=== PATIENT | female | born 1970 | race Caucasian/White ===

== ENCOUNTER 2023-04-28 19:08 | Inpatient (IN) ==
[2023-04-28] MEDS ORDERED: Cefepime 2 GM in Dextrose 2 GM/50 ML BAG IV ONE (20:11)
[2023-04-28] MEDS ORDERED: Lactated Ringers 1000 ml BAG 1,000 ML IV ONE (20:58)
[2023-04-28 21:05] LABS: ABS Basophils 0.1 10^3/uL (0.0-0.1); ABS Lymphocytes 1.3 10^3/uL (1.0-4.8); ABS Neutrophils 8.7 10^3/uL (1.5-7.6); ABS Nucleated RBC 0.08 10^3/ul; Eosinophil % 0.3 %; Hematocrit 31.1 % (35-45); Hemoglobin 9.9 g/dL (11.5-14.3); Mean Corpuscular Hgb Conc 31.8 g/dL (31-36); Mean Platelet Volume 7.5 fL (7.5-11.2); Nucleated Red Blood Cells % 0.7 /100 WBC (0.0-0.4); Platelet Count 376 10^3/uL (150-450); Red Blood Count 3.66 10^6/uL (3.63-4.92); Red Cell Distribution Width 21.6 % (12-17); White Blood Count 11.2 10^3/uL (3.8-11.8)
[2023-04-28 21:12] LABS: Activated Partial Thrombo Time 27.2 seconds (26.0-38.0); INR 1.3 (0.88-1.18)
[2023-04-28 21:23] LABS: Albumin 3.1 g/dL (3.2-5.2); Albumin/Globulin Ratio 1.2 (1-3); C Reactive Protein 48.13 mg/L (<8.01); Calcium 8.1 mg/dL (8.6-10.3); Creatinine, Serum 0.49 mg/dL (0.51-0.95); Globulin 2.5 g/dL (2-4); Potassium 3.3 mmol/L (3.5-5.0); Total Bilirubin 1.5 mg/dL (0.2-1.0); Total Protein 5.6 g/dL (6.4-8.9); eGFR CKD-EPI 114.7 (>60)
[2023-04-28] MEDS ORDERED: Iohexol 350 (CONTRAST) 500 ML MDV IV ONE (21:40)
[2023-04-29] MEDS ORDERED: NS 0.9% 1000 ml BAG 1,000 ML IV ONE ×2 (01:01→06:29)
[2023-04-29] MEDS ORDERED: Potassium Chlor 20 meq TAB.ER PO ONE (01:21)
[2023-04-29] MEDS: ceFAZolin 2 GM PREMIX 2 GM/50 ML BAG IVPB SCH ×3 (01:26→21:24)
[2023-04-29] MEDS ORDERED: Thiamine 100 MG/ML 2 ml VIAL (200 mg) IM ONE (01:32)
[2023-04-29 01:41] LABS: Magnesium 1.1 mg/dL (1.9-2.7)
[2023-04-29] MEDS ORDERED: Magnesium Sulf 4 GM/100 ML IV 4,000 MG/100 ML BAG IVPB ONE (01:52)
[2023-04-29 02:06] LABS: High Sensitivity Troponin 1 Hr 36 pg/mL (<15)
[2023-04-29 02:48] LABS: Hepatitis A Ab IgM Negative (Negative)
[2023-04-29 02:49] LABS: Hepatitis B Core IgM Nonreactive (Nonreactive)
[2023-04-29 03:01] LABS: Hepatitis C Antibody Negative (Negative)
[2023-04-29] MEDS: Multivitamins/Minerals TAB PO SCH ×2 (03:16→09:29)
[2023-04-29] MEDS ORDERED: Iohexol 350 (CONTRAST) 500 ML MDV IV ONE (03:55)
[2023-04-29 04:09] LABS: Hepatitis B Surface Antigen Nonreactive (Nonreactive)
[2023-04-29 07:49] LABS: ABS Monocytes 1.1 10^3/uL (0.0-0.9); ABS Neutrophils 8.4 10^3/uL (1.5-7.6); ABS Nucleated RBC 0.03 10^3/ul; Hematocrit 28.2 % (35-45); Hemoglobin 9.3 g/dL (11.5-14.3); Lymphocyte % 9.7 %; Mean Corpuscular Hemoglobin 27.7 pg (27-33); Mean Corpuscular Hgb Conc 32.9 g/dL (31-36); Mean Corpuscular Volume 84.4 fL (80-97); Mean Platelet Volume 7.6 fL (7.5-11.2); Nucleated Red Blood Cells % 0.3 /100 WBC (0.0-0.4); Platelet Count 339 10^3/uL (150-450); Red Blood Count 3.34 10^6/uL (3.63-4.92); Red Cell Distribution Width 21.4 % (12-17); White Blood Count 10.5 10^3/uL (3.8-11.8)
[2023-04-29 08:06] LABS: Albumin 2.9 g/dL (3.2-5.2); Albumin/Globulin Ratio 1.3 (1-3); Calcium 7.5 mg/dL (8.6-10.3); Creatinine, Serum 0.46 mg/dL (0.51-0.95); Globulin 2.2 g/dL (2-4); Magnesium 2.2 mg/dL (1.9-2.7); Potassium 2.8 mmol/L (3.5-5.0); Total Bilirubin 1.8 mg/dL (0.2-1.0); Total Protein 5.1 g/dL (6.4-8.9); eGFR CKD-EPI 116.5 (>60)
[2023-04-29 08:10] LABS: Urine Appearance Cloudy; Urine Bilirubin Negative (Negative); Urine Blood Negative (Negative); Urine Color Amber; Urine Glucose Negative (Negative); Urine Ketones 1+ (Negative); Urine Nitrite Negative (Negative); Urine Protein Negative (Negative); Urine Specific Gravity 1.013 (1.002-1.030); Urine Urobilinogen Positive (Negative)
[2023-04-29 08:11] LABS: Alcohol, S < 13 mg/dL (<13)
[2023-04-29 08:28] LABS: TSH Ultra Thyroid Stim Horm 3.08 mcIU/mL (0.34-5.60)
[2023-04-29] MEDS: Venlafaxine XR 75 mg PO SCH (09:31)
[2023-04-29] MEDS: Nystatin TOP POWDER 15 GM BTL TOPICAL SCH ×3 (10:09→21:40)
[2023-04-29] MEDS: KCL 20 MEQ/100 ML IVPREMIX 20 MEQ/100 ML BAG IV SCH ×4 (14:01→23:07)
[2023-04-29] MEDS ORDERED: Sulfur Hexaflouride MICROSPHR 25 MG VIAL ONE (14:22)
[2023-04-29 17:03] LABS: Calcium 7.9 mg/dL (8.6-10.3); Creatinine, Serum 0.46 mg/dL (0.51-0.95); eGFR CKD-EPI 116.5 (>60)
[2023-04-30] MEDS: ceFAZolin 2 GM PREMIX 2 GM/50 ML BAG IVPB SCH ×3 (05:13→22:10)
[2023-04-30 05:55] LABS: Hematocrit 28.3 % (35-45); Hemoglobin 9.3 g/dL (11.5-14.3); Mean Corpuscular Hemoglobin 27.7 pg (27-33); Mean Corpuscular Hgb Conc 32.8 g/dL (31-36); Mean Corpuscular Volume 84.5 fL (80-97); Mean Platelet Volume 7.1 fL (7.5-11.2); Platelet Count 279 10^3/uL (150-450); Red Blood Count 3.35 10^6/uL (3.63-4.92); White Blood Count 6.3 10^3/uL (3.8-11.8)
[2023-04-30 06:11] LABS: Albumin 2.9 g/dL (3.2-5.2); Albumin/Globulin Ratio 1.3 (1-3); Calcium 7.8 mg/dL (8.6-10.3); Creatinine, Serum 0.45 mg/dL (0.51-0.95); Globulin 2.2 g/dL (2-4); Magnesium 1.8 mg/dL (1.9-2.7); Potassium 3.3 mmol/L (3.5-5.0); Total Bilirubin 1.1 mg/dL (0.2-1.0); Total Protein 5.1 g/dL (6.4-8.9); eGFR CKD-EPI 117.1 (>60)
[2023-04-30 06:41] LABS: ABS Lymphocytes 0.9 10^3/uL (1.0-4.8); ABS Monocytes 0.6 10^3/uL (0.0-0.9); ABS Neutrophils 4.6 10^3/uL (1.5-7.6); ABS Nucleated RBC 0.01 10^3/ul; Eosinophil % 0.6 %; Lymphocyte % 14.6 %; Nucleated Red Blood Cells % 0.2 /100 WBC (0.0-0.4)
[2023-04-30] MEDS: Multivitamins/Minerals TAB PO SCH (10:13)
[2023-04-30] MEDS: Venlafaxine XR 75 mg PO SCH (10:15)
[2023-04-30] MEDS: Nystatin TOP POWDER 15 GM BTL TOPICAL SCH ×3 (10:18→21:41)
[2023-04-30 10:58] LABS: Ferritin 114.3 ng/mL (11-307)
[2023-04-30] MEDS ORDERED: Magnesium Sulfate 2 gm BAG 2 GM/50 ML BAG IVPB ONE (11:20)
[2023-04-30] MEDS ORDERED: Potassium Chlor 20 meq TAB.ER PO ONE (11:21)
[2023-04-30] MEDS: KCL 20 MEQ/100 ML IVPREMIX 20 MEQ/100 ML BAG IV SCH ×2 (14:21→16:47)
[2023-05-01] MEDS: ceFAZolin 2 GM PREMIX 2 GM/50 ML BAG IVPB SCH ×3 (05:19→21:50)
[2023-05-01 06:20] LABS: ABS Eosinophils 0.2 10^3/uL (0.0-0.5); ABS Monocytes 0.5 10^3/uL (0.0-0.9); ABS Neutrophils 4.8 10^3/uL (1.5-7.6); ABS Nucleated RBC 0.02 10^3/ul; Eosinophil % 2.6 %; Hematocrit 29.1 % (35-45); Hemoglobin 9.4 g/dL (11.5-14.3); Lymphocyte % 15.4 %; Mean Corpuscular Hgb Conc 32.2 g/dL (31-36); Mean Corpuscular Volume 87.2 fL (80-97); Mean Platelet Volume 7.2 fL (7.5-11.2); Nucleated Red Blood Cells % 0.3 /100 WBC (0.0-0.4); Platelet Count 283 10^3/uL (150-450); Red Blood Count 3.34 10^6/uL (3.63-4.92); Red Cell Distribution Width 22.7 % (12-17); White Blood Count 6.6 10^3/uL (3.8-11.8)
[2023-05-01 06:34] LABS: Albumin/Globulin Ratio 1.3 (1-3); Calcium 7.7 mg/dL (8.6-10.3); Creatinine, Serum 0.45 mg/dL (0.51-0.95); Globulin 2.3 g/dL (2-4); Magnesium 1.8 mg/dL (1.9-2.7); Potassium 3.5 mmol/L (3.5-5.0); Total Bilirubin 0.9 mg/dL (0.2-1.0); Total Protein 5.3 g/dL (6.4-8.9); eGFR CKD-EPI 117.1 (>60)
[2023-05-01] MEDS ORDERED: Potassium Chlor 20 meq TAB.ER PO ONE (07:34)
[2023-05-01] MEDS: Multivitamins/Minerals TAB PO SCH (09:23)
[2023-05-01] MEDS: Venlafaxine XR 75 mg PO SCH (09:23)
[2023-05-01] MEDS: Nystatin TOP POWDER 15 GM BTL TOPICAL SCH ×3 (09:25→21:36)
[2023-05-02] MEDS: ceFAZolin 2 GM PREMIX 2 GM/50 ML BAG IVPB SCH ×3 (06:05→22:31)
[2023-05-02 08:18] LABS: Hemoglobin 9.8 g/dL (11.5-14.3); Mean Corpuscular Hemoglobin 27.9 pg (27-33); Mean Corpuscular Hgb Conc 31.6 g/dL (31-36); Mean Corpuscular Volume 88.2 fL (80-97); Mean Platelet Volume 7.4 fL (7.5-11.2); Platelet Count 292 10^3/uL (150-450); Red Blood Count 3.51 10^6/uL (3.63-4.92); Red Cell Distribution Width 22.7 % (12-17); White Blood Count 7.8 10^3/uL (3.8-11.8)
[2023-05-02 08:32] LABS: Blood Urea Nitrogen 3 mg/dL (6-24); C Reactive Protein 39.18 mg/L (<8.01); CO2 Carbon Dioxide 31 mmol/L (22-32); Calcium 8.2 mg/dL (8.6-10.3); Chloride 95 mmol/L (101-111); Creatinine, Serum 0.39 mg/dL (0.51-0.95); Glucose 119 mg/dL (70-100); Sodium 135 mmol/L (135-145); eGFR CKD-EPI 121.2 (>60)
[2023-05-02 08:42] LABS: Anion Gap 9 mmol/L (2-16)
[2023-05-02 10:04] LABS: ABS Eosinophils 0.2 10^3/uL (0.0-0.5); ABS Lymphocytes 1.4 10^3/uL (1.0-4.8); ABS Monocytes 0.7 10^3/uL (0.0-0.9); ABS Neutrophils 5.4 10^3/uL (1.5-7.6); ABS Nucleated RBC 0.09 10^3/ul; Lymphocyte % 18.3 %; Nucleated Red Blood Cells % 1.1 /100 WBC (0.0-0.4)
[2023-05-02] MEDS: Multivitamins/Minerals TAB PO SCH (10:30)
[2023-05-02] MEDS: Venlafaxine XR 75 mg PO SCH (10:31)
[2023-05-02] MEDS: Nystatin TOP POWDER 15 GM BTL TOPICAL SCH ×3 (10:33→20:36)
[2023-05-02 18:11] LABS: PCO2 Arterial 43 mmHg (35-45); PO2 Arterial 76 mmHg (80-100)
[2023-05-03 05:40] LABS: PCO2 Arterial 43 mmHg (35-45); PO2 Arterial 76 mmHg (80-100)
[2023-05-03 05:52] LABS: Hematocrit 28.2 % (35-45); Hemoglobin 9.1 g/dL (11.5-14.3); Mean Corpuscular Hemoglobin 28.1 pg (27-33); Mean Corpuscular Hgb Conc 32.3 g/dL (31-36); Mean Corpuscular Volume 87.1 fL (80-97); Platelet Count 308 10^3/uL (150-450); Red Blood Count 3.23 10^6/uL (3.63-4.92); Red Cell Distribution Width 23.1 % (12-17); White Blood Count 7.4 10^3/uL (3.8-11.8)
[2023-05-03] MEDS: ceFAZolin 2 GM PREMIX 2 GM/50 ML BAG IVPB SCH ×3 (05:54→21:50)
[2023-05-03 06:00] LABS: Calcium 8.3 mg/dL (8.6-10.3); Creatinine, Serum 0.45 mg/dL (0.51-0.95); Magnesium 1.8 mg/dL (1.9-2.7); Potassium 3.7 mmol/L (3.5-5.0); eGFR CKD-EPI 117.1 (>60)
[2023-05-03 06:14] LABS: ABS Eosinophils 0.3 10^3/uL (0.0-0.5); ABS Lymphocytes 1.3 10^3/uL (1.0-4.8); ABS Monocytes 0.8 10^3/uL (0.0-0.9); ABS Nucleated RBC 0.11 10^3/ul; Eosinophil % 3.6 %; Lymphocyte % 17.7 %; Nucleated Red Blood Cells % 1.5 /100 WBC (0.0-0.4)
[2023-05-03] MEDS: Venlafaxine XR 75 mg PO SCH (07:43)
[2023-05-03] MEDS: Multivitamins/Minerals TAB PO SCH (07:43)
[2023-05-03] MEDS: Nystatin TOP POWDER 15 GM BTL TOPICAL SCH ×3 (07:43→21:49)
[2023-05-03] MEDS ORDERED: Potassium Chlor 20 meq TAB.ER PO ONE (08:03)
[2023-05-04] MEDS: ceFAZolin 2 GM PREMIX 2 GM/50 ML BAG IVPB SCH ×3 (05:42→21:54)
[2023-05-04 08:17] LABS: Body Fluid Appearance Cloudy; Body Fluid Color Yellow; Body Fluid Source Synovial Fluid
[2023-05-04 08:47] LABS: Hematocrit 30.9 % (35-45); Mean Corpuscular Hemoglobin 28.3 pg (27-33); Mean Corpuscular Hgb Conc 32.3 g/dL (31-36); Mean Corpuscular Volume 87.4 fL (80-97); Mean Platelet Volume 7.7 fL (7.5-11.2); Platelet Count 394 10^3/uL (150-450); Red Blood Count 3.53 10^6/uL (3.63-4.92); Red Cell Distribution Width 23.4 % (12-17)
[2023-05-04 08:56] LABS: Body Fluid WBC 158 /mcL
[2023-05-04] MEDS: Nystatin TOP POWDER 15 GM BTL TOPICAL SCH ×3 (09:25→20:15)
[2023-05-04] MEDS: Multivitamins/Minerals TAB PO SCH (09:27)
[2023-05-04] MEDS: Venlafaxine XR 75 mg PO SCH (09:27)
[2023-05-04 10:09] LABS: ABS Basophils 0.1 10^3/uL (0.0-0.1); ABS Eosinophils 0.2 10^3/uL (0.0-0.5); ABS Lymphocytes 1.6 10^3/uL (1.0-4.8); ABS Monocytes 0.9 10^3/uL (0.0-0.9); ABS Neutrophils 6.2 10^3/uL (1.5-7.6); ABS Nucleated RBC 0.07 10^3/ul; Eosinophil % 2.6 %; Lymphocyte % 17.7 %; Nucleated Red Blood Cells % 0.8 /100 WBC (0.0-0.4)
[2023-05-04 10:49] LABS: Body Fluid Mono 51 %; Body Fluid Other Cells 17; Body Fluid Total Cells Counted 200
[2023-05-04] MEDS ORDERED: Furosemide 20 mg/2 ml IV VIAL IV SLOW PU ONE (13:11)
[2023-05-04] MEDS ORDERED: Furosemide 40 mg/4 ml IV VIAL IV SLOW PU ONE ×2 (19:34→21:00)
[2023-05-05] MEDS: ceFAZolin 2 GM PREMIX 2 GM/50 ML BAG IVPB SCH ×3 (05:02→22:24)
[2023-05-05 06:10] LABS: Hematocrit 29.4 % (35-45); Hemoglobin 9.3 g/dL (11.5-14.3); Mean Corpuscular Hemoglobin 27.8 pg (27-33); Mean Corpuscular Hgb Conc 31.8 g/dL (31-36); Mean Corpuscular Volume 87.4 fL (80-97); Mean Platelet Volume 7.7 fL (7.5-11.2); Platelet Count 315 10^3/uL (150-450); Red Blood Count 3.36 10^6/uL (3.63-4.92); Red Cell Distribution Width 22.8 % (12-17); White Blood Count 6.4 10^3/uL (3.8-11.8)
[2023-05-05 06:26] LABS: Albumin 3.1 g/dL (3.2-5.2); Albumin/Globulin Ratio 1.1 (1-3); Calcium 8.5 mg/dL (8.6-10.3); Creatinine, Serum 0.5 mg/dL (0.51-0.95); Globulin 2.7 g/dL (2-4); Potassium 3.7 mmol/L (3.5-5.0); Total Bilirubin 0.9 mg/dL (0.2-1.0); Total Protein 5.8 g/dL (6.4-8.9); eGFR CKD-EPI 114.2 (>60)
[2023-05-05 06:51] LABS: ABS Eosinophils 0.2 10^3/uL (0.0-0.5); ABS Lymphocytes 1.3 10^3/uL (1.0-4.8); ABS Monocytes 0.8 10^3/uL (0.0-0.9); ABS Neutrophils 4.1 10^3/uL (1.5-7.6); ABS Nucleated RBC 0.05 10^3/ul; Eosinophil % 3.2 %; Lymphocyte % 19.9 %; Nucleated Red Blood Cells % 0.9 /100 WBC (0.0-0.4)
[2023-05-05] MEDS: Multivitamins/Minerals TAB PO SCH (09:11)
[2023-05-05] MEDS: Nystatin TOP POWDER 15 GM BTL TOPICAL SCH ×3 (09:11→23:22)
[2023-05-05] MEDS: Venlafaxine XR 75 mg PO SCH (09:11)
[2023-05-05] MEDS ORDERED: Furosemide 40 mg/4 ml IV VIAL IV SLOW PU ONE (11:49)
[2023-05-05 12:13] LABS: Magnesium 1.7 mg/dL (1.9-2.7)
[2023-05-05] MEDS ORDERED: Magnesium Sulfate IV 3 GM in NS 0.9% 100 ml BAG 100 ML IVPB ONE (16:25)
[2023-05-05] MEDS ORDERED: Potassium Chlor 20 meq TAB.ER PO ONE (18:00)
[2023-05-06] MEDS: ceFAZolin 2 GM PREMIX 2 GM/50 ML BAG IVPB SCH ×3 (05:36→20:47)
[2023-05-06 09:08] LABS: Calcium 8.5 mg/dL (8.6-10.3); Creatinine, Serum 0.45 mg/dL (0.51-0.95); Potassium 4.2 mmol/L (3.5-5.0); eGFR CKD-EPI 117.1 (>60)
[2023-05-06] MEDS ORDERED: Lidocaine 1% MPF 5 ML VIAL INJ ONE (09:48)
[2023-05-06 10:02] LABS: Folate 13.08 ng/mL (5.90-24.80)
[2023-05-06] MEDS: Multivitamins/Minerals TAB PO SCH (10:27)
[2023-05-06] MEDS: Venlafaxine XR 75 mg PO SCH (10:28)
[2023-05-06] MEDS ORDERED: Magnesium Hydroxide LIQ 30 ML UDC PO PRN (11:20)
[2023-05-06] MEDS: Nystatin TOP POWDER 15 GM BTL TOPICAL SCH ×3 (12:05→20:54)
[2023-05-06] MEDS: Senna TAB 8.6 mg TAB PO PRN (14:03)
[2023-05-06] MEDS: Polyethylene Glycol 3350 17 GM PACKET PO PRN (14:03)
[2023-05-07] MEDS: ceFAZolin 2 GM PREMIX 2 GM/50 ML BAG IVPB SCH ×3 (05:54→21:19)
[2023-05-07] MEDS: Venlafaxine XR 75 mg PO SCH (08:40)
[2023-05-07] MEDS: Multivitamins/Minerals TAB PO SCH (08:41)
[2023-05-07] MEDS: Nystatin TOP POWDER 15 GM BTL TOPICAL SCH ×3 (08:41→22:10)
[2023-05-07] MEDS: Polyethylene Glycol 3350 17 GM PACKET PO PRN (15:34)
[2023-05-07 17:02] LABS: B. burgdorferi PCR Negative (Negative); B. garinii/B. afzellii PCR Negative (Negative); Lyme Disease Source LEFT KNEE
[2023-05-07] MEDS: Senna TAB 8.6 mg TAB PO PRN (17:33)
[2023-05-08] MEDS: ceFAZolin 2 GM PREMIX 2 GM/50 ML BAG IVPB SCH ×3 (06:06→22:15)
[2023-05-08] MEDS: Venlafaxine XR 75 mg PO SCH (09:02)
[2023-05-08] MEDS: Multivitamins/Minerals TAB PO SCH (09:02)
[2023-05-08] MEDS: Senna TAB 8.6 mg TAB PO PRN (09:02)
[2023-05-08] MEDS: Nystatin TOP POWDER 15 GM BTL TOPICAL SCH ×3 (09:03→22:14)
[2023-05-08] MEDS: Polyethylene Glycol 3350 17 GM PACKET PO PRN (14:44)
[2023-05-09 05:45] LABS: ABS Basophils 0.1 10^3/uL (0.0-0.1); ABS Eosinophils 0.2 10^3/uL (0.0-0.5); ABS Lymphocytes 1.1 10^3/uL (1.0-4.8); ABS Monocytes 0.5 10^3/uL (0.0-0.9); ABS Neutrophils 2.5 10^3/uL (1.5-7.6); ABS Nucleated RBC 0.01 10^3/ul; Eosinophil % 4.3 %; Hematocrit 28.1 % (35-45); Hemoglobin 8.8 g/dL (11.5-14.3); Lymphocyte % 25.9 %; Mean Corpuscular Hemoglobin 27.4 pg (27-33); Mean Corpuscular Hgb Conc 31.4 g/dL (31-36); Mean Corpuscular Volume 87.3 fL (80-97); Mean Platelet Volume 7.6 fL (7.5-11.2); Nucleated Red Blood Cells % 0.1 /100 WBC (0.0-0.4); Platelet Count 322 10^3/uL (150-450); Red Blood Count 3.22 10^6/uL (3.63-4.92); Red Cell Distribution Width 22.3 % (12-17); White Blood Count 4.4 10^3/uL (3.8-11.8)
[2023-05-09] MEDS: ceFAZolin 2 GM PREMIX 2 GM/50 ML BAG IVPB SCH ×3 (05:59→21:19)
[2023-05-09] MEDS: Nystatin TOP POWDER 15 GM BTL TOPICAL SCH ×3 (09:03→23:18)
[2023-05-09] MEDS: Multivitamins/Minerals TAB PO SCH (09:03)
[2023-05-09] MEDS: Venlafaxine XR 75 mg PO SCH (09:03)
[2023-05-09] MEDS ORDERED: Alteplase (CATHFLO) 2 MG VIAL IV ONE (22:02)
[2023-05-10] MEDS: ceFAZolin 2 GM PREMIX 2 GM/50 ML BAG IVPB SCH ×3 (06:21→22:31)
[2023-05-10] MEDS: Multivitamins/Minerals TAB PO SCH (08:33)
[2023-05-10] MEDS: Venlafaxine XR 75 mg PO SCH (08:33)
[2023-05-10] MEDS: Nystatin TOP POWDER 15 GM BTL TOPICAL SCH ×3 (08:36→22:28)
[2023-05-11] MEDS: ceFAZolin 2 GM PREMIX 2 GM/50 ML BAG IVPB SCH (05:34)
[2023-05-11 05:48] VITALS: BP 146/82
[2023-05-11] MEDS: Multivitamins/Minerals TAB PO SCH (06:59)
[2023-05-11] MEDS: Venlafaxine XR 75 mg PO SCH (07:00)
[2023-05-11] MEDS: Nystatin TOP POWDER 15 GM BTL TOPICAL SCH (07:01)
== END 2023-05-11 10:00 | DRG 383 ==
LOC: ED 19:08 → EDHOLD 04-29 01:52 → SUATTDRO 04-29 01:52 → MEDTELE 04-29 09:35 → MED 05-02 11:49
PROVIDERS: ADMIT Hospitalist; ATTEND Internal Medicine

== ENCOUNTER 2023-05-11 10:33 | Inpatient (IN) ==
[2023-05-11] MEDS ORDERED: Senna TAB 8.6 mg TAB PO PRN (13:16)
[2023-05-11] MEDS ORDERED: Magnesium Hydroxide LIQ 30 ML UDC PO PRN (13:16)
[2023-05-11] MEDS ORDERED: ceFAZolin 2 GM in NS PREMIX 2 GM/100 ML BAG IVPB SCH (18:00)
[2023-05-11] MEDS: ceFAZolin 2 GM PREMIX 2 GM/50 ML BAG IV SCH (18:58)
[2023-05-12] MEDS: ceFAZolin 2 GM PREMIX 2 GM/50 ML BAG IV SCH ×3 (02:09→18:20)
[2023-05-12] MEDS: Venlafaxine XR 75 mg PO SCH (10:04)
[2023-05-12] MEDS: Nystatin TOP POWDER 15 GM BTL TOPICAL SCH ×2 (10:09→21:11)
[2023-05-13 06:05] LABS: ABS Eosinophils 0.2 10^3/uL (0.0-0.5); ABS Lymphocytes 1.3 10^3/uL (1.0-4.8); ABS Monocytes 0.5 10^3/uL (0.0-0.9); ABS Neutrophils 3.5 10^3/uL (1.5-7.6); ABS Nucleated RBC 0.01 10^3/ul; Eosinophil % 2.8 %; Hemoglobin 8.6 g/dL (11.5-14.3); Lymphocyte % 23.8 %; Mean Corpuscular Hemoglobin 27.7 pg (27-33); Mean Corpuscular Hgb Conc 31.8 g/dL (31-36); Mean Corpuscular Volume 87.1 fL (80-97); Mean Platelet Volume 7.9 fL (7.5-11.2); Nucleated Red Blood Cells % 0.1 /100 WBC (0.0-0.4); Platelet Count 324 10^3/uL (150-450); White Blood Count 5.5 10^3/uL (3.8-11.8)
[2023-05-13 06:29] LABS: Albumin 2.9 g/dL (3.2-5.2); Albumin/Globulin Ratio 1.2 (1-3); Calcium 8.4 mg/dL (8.6-10.3); Creatinine, Serum 0.49 mg/dL (0.51-0.95); Globulin 2.5 g/dL (2-4); Potassium 3.8 mmol/L (3.5-5.0); Total Bilirubin 0.8 mg/dL (0.2-1.0); Total Protein 5.4 g/dL (6.4-8.9); eGFR CKD-EPI 114.7 (>60)
[2023-05-13] MEDS ORDERED: Ondansetron ODT 4 mg TAB 4 MG TAB PO ONE (08:36)
[2023-05-13] MEDS: Nystatin TOP POWDER 15 GM BTL TOPICAL SCH ×3 (10:00→20:02)
[2023-05-13] MEDS: Venlafaxine XR 75 mg PO SCH (10:36)
[2023-05-14] MEDS: Venlafaxine XR 75 mg PO SCH (08:51)
[2023-05-14] MEDS: Nystatin TOP POWDER 15 GM BTL TOPICAL SCH ×2 (11:57→20:11)
[2023-05-15] MEDS: Nystatin TOP POWDER 15 GM BTL TOPICAL SCH ×2 (09:47→20:18)
[2023-05-15] MEDS: Venlafaxine XR 75 mg PO SCH (09:48)
[2023-05-16 04:17] VITALS: BP 148/87
[2023-05-16] MEDS: Venlafaxine XR 75 mg PO SCH (09:46)
[2023-05-16] MEDS: Nystatin TOP POWDER 15 GM BTL TOPICAL SCH (11:42)
[2023-05-16] MEDS ORDERED: Neomycin/Polym/Bacit OPH.OINT 3.5 GM RIGHT EYE SCH (21:00)
== END 2023-05-16 14:15 | disposition home or self-care (01) | DRG 385 ==
LOC: PMRU 10:33
PROVIDERS: ADMIT Physical Medicine & Rehabilitation; ATTEND Physical Medicine & Rehabilitation

== ENCOUNTER 2023-05-26 08:24 | Inpatient (IN) ==
[2023-05-26 10:18] LABS: ABS Eosinophils 0.2 10^3/uL (0.0-0.5); ABS Lymphocytes 0.9 10^3/uL (1.0-4.8); ABS Monocytes 0.5 10^3/uL (0.0-0.9); ABS Neutrophils 4.2 10^3/uL (1.5-7.6); ABS Nucleated RBC 0.02 10^3/ul; Eosinophil % 3.8 %; Hematocrit 27.4 % (35-45); Hemoglobin 8.7 g/dL (11.5-14.3); Lymphocyte % 15.2 %; Mean Corpuscular Hemoglobin 27.1 pg (27-33); Mean Corpuscular Hgb Conc 31.9 g/dL (31-36); Mean Platelet Volume 8.3 fL (7.5-11.2); Nucleated Red Blood Cells % 0.3 /100 WBC (0.0-0.4); Platelet Count 357 10^3/uL (150-450); Red Blood Count 3.22 10^6/uL (3.63-4.92); White Blood Count 5.8 10^3/uL (3.8-11.8)
[2023-05-26] MEDS ORDERED: ceFAZolin 2 GM in NS PREMIX 2 GM/100 ML BAG IVPB ONE (10:25)
[2023-05-26 10:35] LABS: Albumin 3.3 g/dL (3.2-5.2); Albumin/Globulin Ratio 1.3 (1-3); C Reactive Protein 17.99 mg/L (<8.01); Calcium 8.8 mg/dL (8.6-10.3); Creatinine, Serum 0.49 mg/dL (0.51-0.95); Globulin 2.6 g/dL (2-4); Potassium 3.4 mmol/L (3.5-5.0); Total Bilirubin 0.8 mg/dL (0.2-1.0); Total Protein 5.9 g/dL (6.4-8.9)
[2023-05-26] MEDS ORDERED: ceFAZolin 2 GM in NS PREMIX 2 GM/100 ML BAG IVPB SCH (18:00)
[2023-05-26] MEDS: ceFAZolin 2 GM in NS PREMIX 2 GM/100 ML BAG IVPB SCH (18:21)
[2023-05-27] MEDS: ceFAZolin 2 GM in NS PREMIX 2 GM/100 ML BAG IVPB SCH ×4 (00:19→18:26)
[2023-05-27] MEDS: Acetaminophen IV 1 GM/100ML 1,000 MG/100 ML BAG IV PRN ×2 (00:56→18:07)
[2023-05-27 06:56] LABS: ABS Eosinophils 0.2 10^3/uL (0.0-0.5); ABS Lymphocytes 1.3 10^3/uL (1.0-4.8); ABS Monocytes 0.5 10^3/uL (0.0-0.9); ABS Neutrophils 3.3 10^3/uL (1.5-7.6); ABS Nucleated RBC 0.01 10^3/ul; Eosinophil % 2.9 %; Hematocrit 25.4 % (35-45); Hemoglobin 8.2 g/dL (11.5-14.3); Lymphocyte % 23.9 %; Mean Corpuscular Hemoglobin 27.2 pg (27-33); Mean Corpuscular Hgb Conc 32.2 g/dL (31-36); Mean Corpuscular Volume 84.4 fL (80-97); Mean Platelet Volume 8.5 fL (7.5-11.2); Nucleated Red Blood Cells % 0.2 /100 WBC (0.0-0.4); Platelet Count 333 10^3/uL (150-450); Red Blood Count 3.01 10^6/uL (3.63-4.92); Red Cell Distribution Width 19.6 % (12-17); White Blood Count 5.3 10^3/uL (3.8-11.8)
[2023-05-27 07:12] LABS: Albumin 2.8 g/dL (3.2-5.2); Albumin/Globulin Ratio 1.2 (1-3); Calcium 8.2 mg/dL (8.6-10.3); Creatinine, Serum 0.47 mg/dL (0.51-0.95); Globulin 2.4 g/dL (2-4); Magnesium 1.9 mg/dL (1.9-2.7); Potassium 3.4 mmol/L (3.5-5.0); Total Bilirubin 0.7 mg/dL (0.2-1.0); Total Protein 5.2 g/dL (6.4-8.9); eGFR CKD-EPI 115.2 (>60)
[2023-05-27] MEDS: Venlafaxine XR 75 mg PO SCH (07:45)
[2023-05-27] MEDS ORDERED: Ondansetron 4 mg VIAL 2 MG/ML 2 ml VIAL IV PRN (16:12)
[2023-05-27] MEDS: Polyethylene Glycol 3350 17 GM PACKET PO SCH (20:19)
[2023-05-28] MEDS: ceFAZolin 2 GM in NS PREMIX 2 GM/100 ML BAG IVPB SCH ×4 (00:07→18:21)
[2023-05-28] MEDS: Venlafaxine XR 75 mg PO SCH (08:22)
[2023-05-28] MEDS ORDERED: Dextran 70/Hypromellose Tears Eye Drops 15 ml BTL (for Artificials Tears) BOTH EYES PRN (10:34)
[2023-05-28] MEDS: Potassium Chlor 20 meq TAB.ER PO SCH ×2 (11:19→21:16)
[2023-05-28] MEDS: NF:Olopatadine 0.2% (NF) 1 DROP BTL RIGHT EYE SCH ×2 (14:47→21:16)
[2023-05-28] MEDS ORDERED: Artificial Tear OPHTH.OINT 3.5 GM BOTH EYES SCH (21:00)
[2023-05-28] MEDS: Polyethylene Glycol 3350 17 GM PACKET PO SCH (21:16)
[2023-05-29] MEDS: ceFAZolin 2 GM in NS PREMIX 2 GM/100 ML BAG IVPB SCH ×4 (00:04→17:11)
[2023-05-29 06:09] LABS: Hematocrit 26.5 % (35-45); Hemoglobin 8.4 g/dL (11.5-14.3); Mean Corpuscular Hgb Conc 31.6 g/dL (31-36); Mean Corpuscular Volume 85.3 fL (80-97); Mean Platelet Volume 8.5 fL (7.5-11.2); Platelet Count 294 10^3/uL (150-450); Red Blood Count 3.11 10^6/uL (3.63-4.92); Red Cell Distribution Width 19.3 % (12-17); White Blood Count 5.7 10^3/uL (3.8-11.8)
[2023-05-29 06:31] LABS: C Reactive Protein 22.53 mg/L (<8.01); Calcium 8.5 mg/dL (8.6-10.3); Creatinine, Serum 0.42 mg/dL (0.51-0.95); Potassium 3.6 mmol/L (3.5-5.0); eGFR CKD-EPI 118.4 (>60)
[2023-05-29 07:08] LABS: Anisocytosis 3+; Hypochromasia 1+; Polychromasia 1+
[2023-05-29 07:09] LABS: ABS Eosinophils 0.3 10^3/uL (0.0-0.5); ABS Lymphocytes 1.1 10^3/uL (1.0-4.8); ABS Monocytes 0.4 10^3/uL (0.0-0.9); ABS Neutrophils 3.9 10^3/uL (1.5-7.6); ABS Nucleated RBC 0.01 10^3/ul; Eosinophil % 4.4 %; Lymphocyte % 19.8 %; Nucleated Red Blood Cells % 0.2 /100 WBC (0.0-0.4)
[2023-05-29] MEDS: Venlafaxine XR 75 mg PO SCH (09:58)
[2023-05-29] MEDS: NF:Olopatadine 0.2% (NF) 1 DROP BTL RIGHT EYE SCH (10:00)
[2023-05-29 10:32] LABS: Albumin 3.2 g/dL (3.2-5.2); Albumin/Globulin Ratio 1.4 (1-3); Direct Bilirubin 0.3 mg/dL (0.03-0.18); Globulin 2.3 g/dL (2-4); Indirect Bilirubin 0.4 mg/dL (0.3-1.0); Total Bilirubin 0.7 mg/dL (0.2-1.0); Total Protein 5.5 g/dL (6.4-8.9)
[2023-05-29 10:35] LABS: INR 1.29 (0.83-1.13)
[2023-05-29 17:08] VITALS: BP 152/87
== END 2023-05-29 19:00 | disposition home or self-care (01) | DRG 383 ==
LOC: ED 08:24 → EDHOLD 08:24 → SUATTDRO 12:18 → MED 15:51 → SUATTDRO 05-28 10:06
PROVIDERS: ADMIT Hospitalist; ATTEND Hospitalist

== ENCOUNTER 2024-02-22 16:00 | Inpatient (IN) ==
[2024-02-22 17:04] LABS: ABS Basophils 0.1 10^3/uL (0.0-0.1); ABS Eosinophils 0.3 10^3/uL (0.0-0.5); ABS Lymphocytes 0.9 10^3/uL (1.0-4.8); ABS Monocytes 0.5 10^3/uL (0.0-0.9); ABS Neutrophils 6.8 10^3/uL (1.5-7.6); ABS Nucleated RBC 0.01 10^3/ul; Eosinophil % 3.3 %; Hematocrit 24.4 % (35-45); Hemoglobin 7.3 g/dL (11.5-14.3); Lymphocyte % 10.4 %; Mean Corpuscular Hemoglobin 20.2 pg (27-33); Mean Corpuscular Hgb Conc 29.8 g/dL (31-36); Mean Corpuscular Volume 67.9 fL (80-97); Mean Platelet Volume 8.1 fL (7.5-11.2); Nucleated Red Blood Cells % 0.1 %/100WBC (0.0-0.8); Platelet Count 361 10^3/uL (150-450); Red Blood Count 3.59 10^6/uL (3.63-4.92); Red Cell Distribution Width 20.5 % (12-17); White Blood Count 8.5 10^3/uL (3.8-11.8)
[2024-02-22 17:39] LABS: ALT 5 U/L (7-52); AST 12 U/L (13-39); Albumin/Globulin Ratio 1.5 (1-3); Alkaline Phosphatase 109 U/L (35-149); Anion Gap 10 mmol/L (2-16); Blood Urea Nitrogen 8 mg/dL (6-24); C Reactive Protein 13.22 mg/L (<8.01); CO2 Carbon Dioxide 27 mmol/L (22-32); Calcium 9.4 mg/dL (8.6-10.3); Chloride 101 mmol/L (101-111); Creatinine, Serum 0.66 mg/dL (0.51-0.95); Globulin 2.6 g/dL (2-4); Glucose 108 mg/dL (70-100); Potassium 4.6 mmol/L (3.5-5.0); Sodium 138 mmol/L (135-145); Total Bilirubin 0.7 mg/dL (0.2-1.0); Total Protein 6.6 g/dL (6.4-8.9); eGFR CKD-EPI 106.1 (>60)
[2024-02-22 19:17] LABS: % Iron Saturation 4 % (15-55); .Transferrin 340 mg/dL (203-362); Iron < 20 ug/dL (50-212); Total Iron Binding Capacity 476 mcg/dL (250-450); Unsaturated Iron Binding 456 ug/dL
[2024-02-22] MEDS ORDERED: ceFAZolin 2 GM in NS PREMIX 2 GM/100 ML BAG IVPB SCH (19:30)
[2024-02-22 19:38] LABS: Ferritin 12.2 ng/mL (11-307)
[2024-02-22] MEDS: ceFAZolin 2 GM PREMIX 2 GM/50 ML BAG IV SCH (20:21)
[2024-02-22] MEDS: Enoxaparin 40 MG/0.4 ML SYR SUBCUT SCH (23:54)
[2024-02-22] MEDS: Ferric Gluconate IV 250 MG in NS 0.9% 250 ml 200 ML IVPB SCH (23:55)
[2024-02-23] MEDS: Nystatin TOP POWDER 15 GM BTL TOPICAL SCH (01:09)
[2024-02-23 01:50] LABS: Urine Appearance Clear; Urine Bilirubin Negative (Negative); Urine Blood Negative (Negative); Urine Color Light-Yellow; Urine Glucose Negative (Negative); Urine Ketones Negative (Negative); Urine Nitrite Negative (Negative); Urine Protein Negative (Negative); Urine Specific Gravity 1.014 (1.002-1.030); Urine Urobilinogen Negative (Negative); Urine pH 5.5 (5.0-8.0)
[2024-02-23] MEDS: Furosemide 40 mg/4 ml IV VIAL IV SLOW PU ONE ×2 (02:27→05:55)
[2024-02-23 05:58] LABS: ABS Eosinophils 0.2 10^3/uL (0.0-0.5); ABS Monocytes 0.6 10^3/uL (0.0-0.9); ABS Neutrophils 6.6 10^3/uL (1.5-7.6); ABS Nucleated RBC 0.01 10^3/ul; Eosinophil % 2.5 %; Hemoglobin 7.2 g/dL (11.5-14.3); Lymphocyte % 12.4 %; Mean Corpuscular Hemoglobin 20.3 pg (27-33); Mean Corpuscular Volume 67.8 fL (80-97); Mean Platelet Volume 8.2 fL (7.5-11.2); Nucleated Red Blood Cells % 0.1 %/100WBC (0.0-0.8); Platelet Count 359 10^3/uL (150-450); Red Blood Count 3.54 10^6/uL (3.63-4.92); Red Cell Distribution Width 20.3 % (12-17); White Blood Count 8.4 10^3/uL (3.8-11.8)
[2024-02-23 06:09] LABS: Calcium 9.2 mg/dL (8.6-10.3); Creatinine, Serum 0.62 mg/dL (0.51-0.95); Magnesium 1.8 mg/dL (1.9-2.7); Potassium 4.2 mmol/L (3.5-5.0); eGFR CKD-EPI 107.8 (>60)
[2024-02-23 06:23] LABS: TSH Ultra Thyroid Stim Horm 4.87 mcIU/mL (0.34-5.60)
[2024-02-23 06:34] LABS: Folate 7.96 ng/mL (5.90-24.80)
[2024-02-23] MEDS ORDERED: Sulfur Hexaflouride MICROSPHR 25 MG VIAL ONE (08:29)
[2024-02-23] MEDS: Venlafaxine XR 75 mg PO SCH (09:24)
[2024-02-23] MEDS: Furosemide 40 mg/4 ml IV VIAL IV ONE (15:11)
[2024-02-23] MEDS: Lactulose 30 ml UDC PO ONE (15:12)
[2024-02-23] MEDS: Magnesium Sulfate IV 1GM/100ML 1 GM/100 ML BAG IV ONE (18:00)
[2024-02-23] MEDS: Ferric Gluconate IV 250 MG in NS 0.9% 250 ml 200 ML IVPB SCH (21:36)
[2024-02-24 06:35] LABS: ABS Eosinophils 0.3 10^3/uL (0.0-0.5); ABS Lymphocytes 1.1 10^3/uL (1.0-4.8); ABS Monocytes 0.5 10^3/uL (0.0-0.9); ABS Neutrophils 5.6 10^3/uL (1.5-7.6); ABS Nucleated RBC 0.01 10^3/ul; Eosinophil % 3.4 %; Hematocrit 21.9 % (35-45); Hemoglobin 6.8 g/dL (11.5-14.3); Lymphocyte % 14.2 %; Mean Corpuscular Hemoglobin 20.9 pg (27-33); Mean Corpuscular Volume 67.5 fL (80-97); Mean Platelet Volume 8.5 fL (7.5-11.2); Nucleated Red Blood Cells % 0.2 %/100WBC (0.0-0.8); Platelet Count 319 10^3/uL (150-450); Red Blood Count 3.25 10^6/uL (3.63-4.92); Red Cell Distribution Width 20.1 % (12-17); White Blood Count 7.6 10^3/uL (3.8-11.8)
[2024-02-24 06:38] LABS: Calcium 9.1 mg/dL (8.6-10.3); Creatinine, Serum 0.62 mg/dL (0.51-0.95); Magnesium 1.8 mg/dL (1.9-2.7); Potassium 3.8 mmol/L (3.5-5.0); eGFR CKD-EPI 107.8 (>60)
[2024-02-24] MEDS: Magnesium Sulfate IV 1GM/100ML 1 GM/100 ML BAG IV ONE (08:32)
[2024-02-24] MEDS: Cyanocobalamin INJ 1,000 MCG/ML VIAL 1 ML VIAL IM ONE (10:34)
[2024-02-24] MEDS: Potassium Chlor 20 meq TAB.ER PO ONE (11:50)
[2024-02-24] MEDS ORDERED: Senna TAB 8.6 mg TAB PO PRN (12:05)
[2024-02-24] MEDS: KCL 20 MEQ/100 ML IVPREMIX 20 MEQ/100 ML BAG IV ONE (12:08)
[2024-02-24 13:22] LABS: Hematocrit 24.2 % (35-45); Hemoglobin 7.5 g/dL (11.5-14.3)
[2024-02-24] MEDS: Furosemide 40 mg/4 ml IV VIAL IV ONE (16:03)
[2024-02-24 19:27] LABS: Immature Retic Fraction 0.47
[2024-02-24 19:56] LABS: Corrected Retic Count 1.4 % (0.5-2.2); Hematocrit for Retic CNT 25.2 % (35-45); RBC Retic Count 3.66 10^6/ul (3.63-4.92)
[2024-02-24] MEDS: Polyethylene Glycol 3350 17 GM PACKET PO SCH (20:15)
[2024-02-25 07:18] LABS: ABS Basophils 0.1 10^3/uL (0.0-0.1); ABS Eosinophils 0.4 10^3/uL (0.0-0.5); ABS Monocytes 0.5 10^3/uL (0.0-0.9); ABS Neutrophils 6.7 10^3/uL (1.5-7.6); ABS Nucleated RBC 0.02 10^3/ul; Hematocrit 24.3 % (35-45); Hemoglobin 7.7 g/dL (11.5-14.3); Lymphocyte % 11.2 %; Mean Corpuscular Hgb Conc 31.6 g/dL (31-36); Mean Corpuscular Volume 69.5 fL (80-97); Mean Platelet Volume 8.2 fL (7.5-11.2); Nucleated Red Blood Cells % 0.2 %/100WBC (0.0-0.8); Platelet Count 295 10^3/uL (150-450); Red Cell Distribution Width 21.1 % (12-17); White Blood Count 8.6 10^3/uL (3.8-11.8)
[2024-02-25 07:31] LABS: Calcium 8.9 mg/dL (8.6-10.3); Creatinine, Serum 0.58 mg/dL (0.51-0.95); Magnesium 1.8 mg/dL (1.9-2.7); Potassium 3.7 mmol/L (3.5-5.0); eGFR CKD-EPI 109.5 (>60)
[2024-02-25] MEDS: Magnesium Sulfate 2 gm BAG 2 GM/50 ML BAG IVPB ONE (09:23)
[2024-02-25] MEDS: Potassium Chlor 20 meq TAB.ER PO ONE (11:04)
[2024-02-25] MEDS: Furosemide 40 mg/4 ml IV VIAL IV ONE (11:04)
[2024-02-25 12:44] LABS: ABS Basophils 0.1 10^3/uL (0.0-0.1); ABS Eosinophils 0.4 10^3/uL (0.0-0.5); ABS Lymphocytes 0.8 10^3/uL (1.0-4.8); ABS Monocytes 0.6 10^3/uL (0.0-0.9); ABS Neutrophils 7.7 10^3/uL (1.5-7.6); ABS Nucleated RBC 0.01 10^3/ul; Eosinophil % 4.2 %; Hematocrit 26.1 % (35-45); Hemoglobin 7.9 g/dL (11.5-14.3); Mean Corpuscular Hemoglobin 20.9 pg (27-33); Mean Corpuscular Hgb Conc 30.1 g/dL (31-36); Mean Corpuscular Volume 69.5 fL (80-97); Mean Platelet Volume 7.9 fL (7.5-11.2); Nucleated Red Blood Cells % 0.1 %/100WBC (0.0-0.8); Platelet Count 318 10^3/uL (150-450); Red Blood Count 3.76 10^6/uL (3.63-4.92); Red Cell Distribution Width 20.8 % (12-17); White Blood Count 9.5 10^3/uL (3.8-11.8)
[2024-02-26 06:31] LABS: ABS Basophils 0.1 10^3/uL (0.0-0.1); ABS Eosinophils 0.5 10^3/uL (0.0-0.5); ABS Lymphocytes 1.1 10^3/uL (1.0-4.8); ABS Monocytes 0.7 10^3/uL (0.0-0.9); ABS Neutrophils 6.5 10^3/uL (1.5-7.6); ABS Nucleated RBC 0.02 10^3/ul; Hematocrit 28.2 % (35-45); Hemoglobin 8.7 g/dL (11.5-14.3); Lymphocyte % 12.2 %; Mean Corpuscular Hemoglobin 21.6 pg (27-33); Mean Corpuscular Hgb Conc 30.9 g/dL (31-36); Mean Platelet Volume 8.2 fL (7.5-11.2); Nucleated Red Blood Cells % 0.2 %/100WBC (0.0-0.8); Platelet Count 320 10^3/uL (150-450); Red Blood Count 4.03 10^6/uL (3.63-4.92); Red Cell Distribution Width 21.3 % (12-17); White Blood Count 8.8 10^3/uL (3.8-11.8)
[2024-02-26 06:53] LABS: Calcium 9.3 mg/dL (8.6-10.3); Creatinine, Serum 0.66 mg/dL (0.51-0.95); Magnesium 2.1 mg/dL (1.9-2.7); eGFR CKD-EPI 106.1 (>60)
[2024-02-26] MEDS: Cyanocobalamin INJ 1,000 MCG/ML VIAL 1 ML VIAL IM ONE (11:17)
[2024-02-26] MEDS: Furosemide 20 mg/2 ml IV VIAL IV SLOW PU ONE (11:17)
[2024-02-26 13:25] VITALS: BP 110/78
[2024-03-01 01:08] LABS: Urine Collection Duration 24 h
== END 2024-02-26 17:39 | disposition home or self-care (01) | DRG 385 ==
LOC: EDHOLD 16:00 → ED 16:00 → MED 18:50 → SUATTDRO 02-24 09:08
PROVIDERS: ADMIT Internal Medicine; ATTEND Internal Medicine

== ENCOUNTER 2024-04-05 11:35 | Inpatient (IN) ==
[2024-04-05] MEDS: Furosemide 40 mg/4 ml IV VIAL IV ONE (16:13)
[2024-04-05 16:35] LABS: Urine Appearance Turbid; Urine Bacteria Absent /HPF (Absent); Urine Bilirubin Negative (Negative); Urine Blood 3+ (Negative); Urine Glucose Negative (Negative); Urine Ketones Negative (Negative); Urine Nitrite Negative (Negative); Urine Protein 1+ (>=30 mg/dL) (Negative); Urine Red Blood Cell 3+(>10/hpf) /HPF (0-Trace); Urine Specific Gravity 1.017 (1.002-1.030); Urine Urobilinogen Negative (Negative); Urine White Blood Cell 1+(6-10/hpf) /HPF (0-Trace); Urine pH 5.5 (5.0-8.0)
[2024-04-05 17:21] LABS: Albumin 4.4 g/dL (3.2-5.2); Albumin/Globulin Ratio 1.4 (1-3); Creatinine, Serum 0.64 mg/dL (0.51-0.95); Globulin 3.2 g/dL (2-4); Magnesium 1.8 mg/dL (1.9-2.7); Potassium 4.1 mmol/L (3.5-5.0); Total Bilirubin 0.8 mg/dL (0.2-1.0); Total Protein 7.6 g/dL (6.4-8.9); eGFR CKD-EPI 106.9 (>60)
[2024-04-05 17:24] LABS: Urine Color Light-Brown
[2024-04-05 18:03] LABS: ABS Basophils 0.1 10^3/uL (0.0-0.1); ABS Eosinophils 0.3 10^3/uL (0.0-0.5); ABS Lymphocytes 1.2 10^3/uL (1.0-4.8); ABS Monocytes 0.4 10^3/uL (0.0-0.9); ABS Neutrophils 6.8 10^3/uL (1.5-7.6); ABS Nucleated RBC 0.01 10^3/ul; Anisocytosis 1+; Eosinophil % 3.6 %; Hematocrit 35.4 % (35-45); Hemoglobin 10.3 g/dL (11.5-14.3); Hypochromasia 2+; Lymphocyte % 13.9 %; Mean Corpuscular Hemoglobin 23.4 pg (27-33); Mean Corpuscular Hgb Conc 29.2 g/dL (31-36); Mean Corpuscular Volume 80.1 fL (80-97); Mean Platelet Volume 9.6 fL (7.5-11.2); Nucleated Red Blood Cells % 0.1 %/100WBC (0.0-0.8); Platelet Count 310 10^3/uL (150-450); Red Blood Count 4.42 10^6/uL (3.63-4.92); Red Cell Distribution Width 24.2 % (12-17); White Blood Count 8.9 10^3/uL (3.8-11.8)
[2024-04-05] MEDS: Iohexol 350 (CONTRAST) 500 ML MDV IV ONE (20:37)
[2024-04-06] MEDS: Venlafaxine XR 75 mg PO ONE (01:12)
[2024-04-06] MEDS: Furosemide 20 mg/2 ml IV VIAL IV SLOW PU ONE (01:12)
[2024-04-06 06:38] LABS: ABS Eosinophils 0.3 10^3/uL (0.0-0.5); ABS Lymphocytes 1.1 10^3/uL (1.0-4.8); ABS Monocytes 0.5 10^3/uL (0.0-0.9); ABS Neutrophils 5.2 10^3/uL (1.5-7.6); Eosinophil % 3.7 %; Hematocrit 29.8 % (35-45); Hemoglobin 9.3 g/dL (11.5-14.3); Lymphocyte % 14.9 %; Mean Corpuscular Hemoglobin 24.3 pg (27-33); Mean Corpuscular Hgb Conc 31.3 g/dL (31-36); Mean Corpuscular Volume 77.5 fL (80-97); Platelet Count 246 10^3/uL (150-450); Red Blood Count 3.84 10^6/uL (3.63-4.92); Red Cell Distribution Width 23.8 % (12-17)
[2024-04-06 07:05] LABS: Calcium 9.2 mg/dL (8.6-10.3); Creatinine, Serum 0.59 mg/dL (0.51-0.95); Magnesium 1.7 mg/dL (1.9-2.7); Phosphorus 4.5 mg/dL (2.5-5.0); Potassium 3.9 mmol/L (3.5-5.0)
[2024-04-06 07:25] LABS: Ferritin 27.9 ng/mL (11-307)
[2024-04-06 07:31] LABS: High Sensitivity Troponin 1 Hr 8 pg/mL (<15)
[2024-04-06] MEDS: Magnesium Sulfate 2 gm BAG 2 GM/50 ML BAG IVPB ONE (08:36)
[2024-04-06] MEDS: Potassium Chlor 10 meq TAB PO ONE (08:38)
[2024-04-06] MEDS: Venlafaxine XR 75 mg PO SCH (08:38)
[2024-04-06] MEDS ORDERED: Ferric Gluconate IV 125 MG in Premix IV 0 ML IV PUSH SCH (12:00)
[2024-04-06] MEDS: Ferric Gluconate IV 125 MG in NS 0.9% 100 ML IVPB SCH (12:55)
[2024-04-06] MEDS: Bumetanide IV 0.25 MG/ML 4 ml VIAL (1 mg) IV SLOW PU ONE (12:55)
[2024-04-06 18:17] LABS: Albumin 4.1 g/dL (3.2-5.2)
[2024-04-06 18:42] LABS: Body Fluid Total Nucleated 583 /mcL
[2024-04-06 18:51] LABS: Body Fluid Appearance Clear; Body Fluid Color Yellow; Body Fluid Mono 71 %; Body Fluid Source Pleural Fluid; Body Fluid Total Cells Counted 200
[2024-04-07 07:02] LABS: Calcium 9.1 mg/dL (8.6-10.3); Creatinine, Serum 0.66 mg/dL (0.51-0.95); Magnesium 1.9 mg/dL (1.9-2.7); Potassium 3.8 mmol/L (3.5-5.0); eGFR CKD-EPI 106.1 (>60)
[2024-04-07 07:28] LABS: ABS Basophils 0.1 10^3/uL (0.0-0.1); ABS Eosinophils 0.3 10^3/uL (0.0-0.5); ABS Lymphocytes 0.9 10^3/uL (1.0-4.8); ABS Monocytes 0.4 10^3/uL (0.0-0.9); ABS Neutrophils 4.6 10^3/uL (1.5-7.6); Anisocytosis 2+; Eosinophil % 4.1 %; Hematocrit 29.5 % (35-45); Hemoglobin 9.2 g/dL (11.5-14.3); Hypochromasia 2+; Lymphocyte % 14.3 %; Mean Corpuscular Hemoglobin 24.2 pg (27-33); Mean Corpuscular Hgb Conc 31.1 g/dL (31-36); Mean Corpuscular Volume 77.9 fL (80-97); Mean Platelet Volume 10.7 fL (7.5-11.2); Platelet Count 179 10^3/uL (150-450); Red Blood Count 3.78 10^6/uL (3.63-4.92); Red Cell Distribution Width 23.6 % (12-17); White Blood Count 6.3 10^3/uL (3.8-11.8)
[2024-04-08] MEDS: Ondansetron 4 mg VIAL 2 MG/ML 2 ml VIAL IV PRN (02:24)
[2024-04-08 05:53] LABS: Calcium 9.5 mg/dL (8.6-10.3); Creatinine, Serum 0.61 mg/dL (0.51-0.95); Potassium 3.6 mmol/L (3.5-5.0); eGFR CKD-EPI 108.2 (>60)
[2024-04-08 09:51] VITALS: BP 123/56
[2024-04-08] MEDS: Potassium Chlor 20 meq TAB.ER PO ONE (09:54)
[2024-04-09 10:40] LABS: Fluid Type, Protein, Total PLEURAL; Fluid Type: PLEURAL; Glucose, BF 113 mg/dL; Total Protein, BF 3.6 g/dL
[2024-04-09 10:42] LABS: Albumin, BF 2.4 g/dL; Fluid Type, Albumin PLEURAL
[2024-04-09 10:43] LABS: Lactate Dehydrogenase, BF 103 U/L
== END 2024-04-08 15:00 | disposition home or self-care (01) | DRG 292 ==
LOC: ED 11:35 → EDHOLD 04-06 01:29 → SUATTDRO 04-06 01:29 → MEDTELE 04-06 04:32
PROVIDERS: ADMIT Internal Medicine; ATTEND Internal Medicine

== ENCOUNTER 2024-07-08 12:08 | Inpatient (IN) ==
[2024-07-08 13:04] LABS: ABS Basophils 0.1 10^3/uL (0.0-0.1); ABS Eosinophils 0.2 10^3/uL (0.0-0.5); ABS Lymphocytes 0.9 10^3/uL (1.0-4.8); ABS Monocytes 0.3 10^3/uL (0.0-0.9); ABS Neutrophils 5.1 10^3/uL (1.5-7.6); ABS Nucleated RBC 0.01 10^3/ul; Eosinophil % 3.4 %; Hematocrit 33.2 % (35-45); Hemoglobin 10.7 g/dL (11.5-14.3); Mean Corpuscular Hemoglobin 26.8 pg (27-33); Mean Corpuscular Hgb Conc 32.1 g/dL (31-36); Mean Corpuscular Volume 83.7 fL (80-97); Mean Platelet Volume 9.6 fL (7.5-11.2); Nucleated Red Blood Cells % 0.1 %/100WBC (0.0-0.8); Platelet Count 265 10^3/uL (150-450); Red Blood Count 3.97 10^6/uL (3.63-4.92); Red Cell Distribution Width 17.2 % (12-17); White Blood Count 6.6 10^3/uL (3.8-11.8)
[2024-07-08 13:32] LABS: PCO2 Arterial 64 mmHg (35-45); PO2 Arterial 105 mmHg (80-100)
[2024-07-08 13:43] LABS: Albumin 4.3 g/dL (3.2-5.2); Albumin/Globulin Ratio 1.5 (1-3); C Reactive Protein 20.62 mg/L (<8.01); Calcium 9.7 mg/dL (8.6-10.3); Creatinine, Serum 0.83 mg/dL (0.51-0.95); Globulin 2.8 g/dL (2-4); Potassium 3.8 mmol/L (3.5-5.0); Total Bilirubin 0.8 mg/dL (0.2-1.0); Total Protein 7.1 g/dL (6.4-8.9); eGFR CKD-EPI 84.8 (>60)
[2024-07-08] MEDS: Iodixanol 320 (CONTRAST) 100 ML SDV IV ONE (14:38)
[2024-07-08] MEDS: Bumetanide IV 0.25 MG/ML 4 ml VIAL (1 mg) IV SLOW PU ONE ×2 (15:13→16:56)
[2024-07-08 15:34] LABS: High Sensitivity Troponin 1 Hr 12 pg/mL (<15)
[2024-07-08] MEDS ORDERED: Sulfur Hexaflouride MICROSPHR 25 MG VIAL IV PRN (16:35)
[2024-07-08] MEDS: HYDROmorphone 0.5 MG/0.5 ML SYRINGE IV SLOW PU PRN (22:40)
[2024-07-09 06:20] LABS: Hematocrit 30.6 % (35-45); Hemoglobin 9.7 g/dL (11.5-14.3); INR 1.88 (0.85-1.14); Mean Corpuscular Hemoglobin 26.6 pg (27-33); Mean Corpuscular Hgb Conc 31.9 g/dL (31-36); Mean Corpuscular Volume 83.3 fL (80-97); Mean Platelet Volume 9.6 fL (7.5-11.2); Platelet Count 242 10^3/uL (150-450); Red Blood Count 3.67 10^6/uL (3.63-4.92); Red Cell Distribution Width 17.3 % (12-17); White Blood Count 6.8 10^3/uL (3.8-11.8)
[2024-07-09 06:28] LABS: Albumin 3.8 g/dL (3.2-5.2); Albumin/Globulin Ratio 1.6 (1-3); Calcium 9.1 mg/dL (8.6-10.3); Creatinine, Serum 0.6 mg/dL (0.51-0.95); Globulin 2.4 g/dL (2-4); Magnesium 1.5 mg/dL (1.9-2.7); Potassium 3.2 mmol/L (3.5-5.0); Total Bilirubin 0.9 mg/dL (0.2-1.0); Total Protein 6.2 g/dL (6.4-8.9); eGFR CKD-EPI 107.9 (>60)
[2024-07-09] MEDS ORDERED: Bumetanide IV 0.25 MG/ML 4 ml VIAL (1 mg) IV SLOW PU SCH (09:00)
[2024-07-09] MEDS ORDERED: KCL 20 MEQ/100 ML IVPREMIX 20 MEQ/100 ML BAG IV SCH (10:00)
[2024-07-09] MEDS: Bumetanide IV 0.25 MG/ML 4 ml VIAL (1 mg) IV SLOW PU SCH ×2 (10:17→12:29)
[2024-07-09] MEDS: Cholecalciferol (VIT D3) 1,000 unit TAB PO SCH (10:25)
[2024-07-09] MEDS: TERBINAFINE HCL 250 MG PO SCH (10:25)
[2024-07-09] MEDS: Magnesium Sulf 4 GM/100 ML IV 4,000 MG/100 ML BAG IVPB ONE (10:25)
[2024-07-09] MEDS: KCL premix 10 MEQ/50 ML x 3 RUNS IV SCH (10:25)
[2024-07-09] MEDS: Venlafaxine XR 75 mg PO SCH (10:26)
[2024-07-09 19:54] LABS: Body Fluid Total Nucleated 618 /mcL
[2024-07-09 20:52] LABS: Body Fluid Mono 21 %; Body Fluid Other Cells 78; Body Fluid Total Cells Counted 200
[2024-07-09 20:53] LABS: Body Fluid Appearance Cloudy
[2024-07-09 20:54] LABS: Body Fluid Color Yellow; Body Fluid Source Pleural Fluid
[2024-07-10 06:41] LABS: Hemoglobin 8.6 g/dL (11.5-14.3); Mean Corpuscular Hemoglobin 27.2 pg (27-33); Mean Corpuscular Hgb Conc 32.9 g/dL (31-36); Mean Corpuscular Volume 82.6 fL (80-97); Mean Platelet Volume 9.3 fL (7.5-11.2); Platelet Count 210 10^3/uL (150-450); Red Blood Count 3.15 10^6/uL (3.63-4.92); Red Cell Distribution Width 17.1 % (12-17)
[2024-07-10 07:21] LABS: Calcium 8.5 mg/dL (8.6-10.3); Creatinine, Serum 0.58 mg/dL (0.51-0.95); Magnesium 1.5 mg/dL (1.9-2.7); Potassium 3.1 mmol/L (3.5-5.0); eGFR CKD-EPI 108.8 (>60)
[2024-07-10] MEDS: KCL 20 MEQ/100 ML IVPREMIX 20 MEQ/100 ML BAG IV SCH (08:25)
[2024-07-10] MEDS: Magnesium Sulf 4 GM/100 ML IV 4,000 MG/100 ML BAG IVPB ONE (08:40)
[2024-07-10] MEDS: KCL premix 10 MEQ/50 ML x 2 BAGS IV SCH (13:06)
[2024-07-10 15:57] LABS: Calcium 8.7 mg/dL (8.6-10.3); Creatinine, Serum 0.54 mg/dL (0.51-0.95); Potassium 3.4 mmol/L (3.5-5.0); eGFR CKD-EPI 110.7 (>60)
[2024-07-10] MEDS: Potassium Chlor 20 meq TAB.ER PO ONE ×2 (16:31→21:35)
[2024-07-10 17:32] LABS: Magnesium 1.8 mg/dL (1.9-2.7)
[2024-07-10] MEDS: Magnesium Sulfate 2 gm BAG 2 GM/50 ML BAG IVPB ONE (18:17)
[2024-07-10] MEDS: Bumetanide IV 0.25 MG/ML 4 ml VIAL (1 mg) IV SLOW PU SCH (20:22)
[2024-07-11 06:07] LABS: Hematocrit 23.9 % (35-45); Hemoglobin 7.7 g/dL (11.5-14.3); Mean Corpuscular Hemoglobin 26.7 pg (27-33); Mean Corpuscular Hgb Conc 32.3 g/dL (31-36); Mean Corpuscular Volume 82.8 fL (80-97); Mean Platelet Volume 9.9 fL (7.5-11.2); Platelet Count 171 10^3/uL (150-450); Red Blood Count 2.88 10^6/uL (3.63-4.92); Red Cell Distribution Width 17.2 % (12-17)
[2024-07-11 07:18] LABS: Calcium 8.5 mg/dL (8.6-10.3); Creatinine, Serum 0.54 mg/dL (0.51-0.95); Magnesium 1.8 mg/dL (1.9-2.7); Potassium 3.4 mmol/L (3.5-5.0); eGFR CKD-EPI 110.7 (>60)
[2024-07-11] MEDS: Magnesium Sulfate 2 gm BAG 2 GM/50 ML BAG IVPB ONE (10:25)
[2024-07-11] MEDS: Potassium Chlor 20 meq TAB.ER PO ONE (11:12)
[2024-07-11] MEDS ORDERED: Magnesium Hydroxide LIQ 30 ML UDC PO PRN (12:09)
[2024-07-11 12:35] LABS: Lactate Dehydrogenase, BF 85 U/L
[2024-07-11] MEDS: Polyethylene Glycol 3350 17 GM PACKET PO SCH (12:52)
[2024-07-11 15:00] LABS: Hematocrit 23.7 % (35-45); Hemoglobin 7.8 g/dL (11.5-14.3); Mean Corpuscular Hemoglobin 27.2 pg (27-33); Mean Corpuscular Volume 82.5 fL (80-97); Mean Platelet Volume 9.7 fL (7.5-11.2); Platelet Count 201 10^3/uL (150-450); Red Blood Count 2.87 10^6/uL (3.63-4.92); White Blood Count 7.3 10^3/uL (3.8-11.8)
[2024-07-11 15:39] LABS: Calcium 8.6 mg/dL (8.6-10.3); Creatinine, Serum 0.44 mg/dL (0.51-0.95); Potassium 3.5 mmol/L (3.5-5.0); eGFR CKD-EPI 116.3 (>60)
[2024-07-11 16:10] LABS: Ferritin 71.8 ng/mL (11-307); Folate 7.88 ng/mL (5.90-24.80)
[2024-07-11] MEDS: Senna TAB 8.6 mg TAB PO SCH (20:52)
[2024-07-12 08:03] LABS: ABS Eosinophils 0.3 10^3/uL (0.0-0.5); ABS Lymphocytes 0.7 10^3/uL (1.0-4.8); ABS Monocytes 0.4 10^3/uL (0.0-0.9); ABS Neutrophils 4.3 10^3/uL (1.5-7.6); Eosinophil % 4.9 %; Hematocrit 21.6 % (35-45); Hemoglobin 7.2 g/dL (11.5-14.3); Mean Corpuscular Hemoglobin 27.5 pg (27-33); Mean Corpuscular Hgb Conc 33.2 g/dL (31-36); Mean Corpuscular Volume 82.9 fL (80-97); Mean Platelet Volume 9.9 fL (7.5-11.2); Nucleated Red Blood Cells % 0.1 %/100WBC (0.0-0.8); Platelet Count 186 10^3/uL (150-450); Red Blood Count 2.61 10^6/uL (3.63-4.92); Red Cell Distribution Width 17.2 % (12-17); White Blood Count 5.8 10^3/uL (3.8-11.8)
[2024-07-12 08:44] LABS: Calcium 8.6 mg/dL (8.6-10.3); Creatinine, Serum 0.5 mg/dL (0.51-0.95); Magnesium 1.6 mg/dL (1.9-2.7); Potassium 3.5 mmol/L (3.5-5.0); eGFR CKD-EPI 112.8 (>60)
[2024-07-12] MEDS: Potassium Chlor 20 meq TAB.ER PO ONE (09:40)
[2024-07-12] MEDS ORDERED: KCL 20 MEQ/100 ML IVPREMIX 20 MEQ/100 ML BAG IV SCH (10:00)
[2024-07-12 10:21] LABS: Albumin, BF 2.5 g/dL; Fluid Type, Albumin PLEURAL; Fluid Type, Protein, Total PLEURAL; Fluid Type: PLEURAL; Glucose, BF 90 mg/dL; Total Protein, BF 3.9 g/dL
[2024-07-12] MEDS: Magnesium Sulf 4 GM/100 ML IV 4,000 MG/100 ML BAG IVPB ONE (11:05)
[2024-07-12] MEDS: KCL premix 10 MEQ/50 ML x 4 RUNS IV SCH (11:08)
[2024-07-12 15:32] LABS: Calcium 8.4 mg/dL (8.6-10.3); Creatinine, Serum 0.47 mg/dL (0.51-0.95); Potassium 3.6 mmol/L (3.5-5.0); eGFR CKD-EPI 114.5 (>60)
[2024-07-12] MEDS: Lidocaine PATCH 5% PATCH TRANSDERM SCH (16:13)
[2024-07-12 16:31] LABS: Hematocrit 21.4 % (35-45); Hemoglobin 6.8 g/dL (11.5-14.3); Mean Corpuscular Hemoglobin 26.7 pg (27-33); Mean Corpuscular Hgb Conc 32.1 g/dL (31-36); Mean Corpuscular Volume 83.3 fL (80-97); Platelet Count 176 10^3/uL (150-450); Red Blood Count 2.57 10^6/uL (3.63-4.92); Red Cell Distribution Width 17.3 % (12-17); White Blood Count 5.2 10^3/uL (3.8-11.8)
[2024-07-12] MEDS: Pantoprazole VIAL 40 MG VIAL IV SCH (20:23)
[2024-07-12 22:21] LABS: Hematocrit 25.7 % (35-45); Hemoglobin 8.3 g/dL (11.5-14.3)
[2024-07-12] MEDS: Oral Rinse (Biotene)(NF) 237 ML or 473 ML ORAL RINSE BTL MT PRN (22:47)
[2024-07-13 06:53] LABS: Hematocrit 23.3 % (35-45); Hemoglobin 7.7 g/dL (11.5-14.3); Mean Corpuscular Hemoglobin 27.5 pg (27-33); Mean Corpuscular Hgb Conc 32.9 g/dL (31-36); Mean Corpuscular Volume 83.5 fL (80-97); Mean Platelet Volume 9.1 fL (7.5-11.2); Platelet Count 194 10^3/uL (150-450); White Blood Count 6.2 10^3/uL (3.8-11.8)
[2024-07-13 07:27] LABS: Calcium 8.6 mg/dL (8.6-10.3); Creatinine, Serum 0.54 mg/dL (0.51-0.95); Magnesium 1.9 mg/dL (1.9-2.7); Potassium 3.7 mmol/L (3.5-5.0); eGFR CKD-EPI 110.7 (>60)
[2024-07-13] MEDS: Potassium Chlor 20 meq TAB.ER PO ONE (09:44)
[2024-07-13] MEDS: Magnesium Sulfate 2 gm BAG 2 GM/50 ML BAG IVPB ONE (09:46)
[2024-07-13 12:22] LABS: Hematocrit 24.6 % (35-45); Hemoglobin 7.8 g/dL (11.5-14.3)
[2024-07-13 12:33] LABS: INR 1.46 (0.85-1.14)
[2024-07-13] MEDS ORDERED: Lidocaine 2% PF 5 ML VIAL ONE (16:17)
[2024-07-13] MEDS ORDERED: Propofol 10 MG/ML 20 ML BTL ONE (16:17)
[2024-07-14 08:49] LABS: Hematocrit 23.4 % (35-45); Hemoglobin 7.6 g/dL (11.5-14.3); Mean Corpuscular Hemoglobin 26.9 pg (27-33); Mean Corpuscular Hgb Conc 32.2 g/dL (31-36); Mean Corpuscular Volume 83.7 fL (80-97); Mean Platelet Volume 9.2 fL (7.5-11.2); Platelet Count 210 10^3/uL (150-450); Red Cell Distribution Width 17.8 % (12-17)
[2024-07-14 09:41] LABS: Anion Gap 5 mmol/L (2-16); Blood Urea Nitrogen 6 mg/dL (6-24); CO2 Carbon Dioxide 40 mmol/L (22-32); Calcium 8.9 mg/dL (8.6-10.3); Chloride 90 mmol/L (101-111); Glucose 100 mg/dL (70-100); Magnesium 1.8 mg/dL (1.9-2.7); Potassium 3.9 mmol/L (3.5-5.0); Sodium 135 mmol/L (135-145); eGFR CKD-EPI 112.8 (>60)
[2024-07-14] MEDS: Ferric Gluconate IV 250 MG in NS 0.9% 250 ml 200 ML IVPB SCH (10:28)
[2024-07-14] MEDS: Iohexol 350 (CONTRAST) 500 ML MDV IV ONE (17:42)
[2024-07-14 18:04] LABS: Lipase < 10 U/L (11.0-82.0)
[2024-07-14] MEDS: KCL 20 MEQ/100 ML IVPREMIX 20 MEQ/100 ML BAG IV SCH (18:35)
[2024-07-14] MEDS: Magnesium Sulfate 2 gm BAG 2 GM/50 ML BAG IVPB ONE (18:35)
[2024-07-14] MEDS: Bumetanide IV 0.25 MG/ML 4 ml VIAL (1 mg) IV SLOW PU ONE (18:35)
[2024-07-14] MEDS: Bumetanide IV 0.25 MG/ML 4 ml VIAL (1 mg) IV SLOW PU SCH (18:48)
[2024-07-15] MEDS: Nystatin TOP POWDER 15 GM BTL TOPICAL PRN (01:07)
[2024-07-15 07:57] LABS: Albumin 3.3 g/dL (3.2-5.2); Albumin/Globulin Ratio 1.5 (1-3); C Reactive Protein 45.08 mg/L (<8.01); Calcium 8.9 mg/dL (8.6-10.3); Creatinine, Serum 0.51 mg/dL (0.51-0.95); Globulin 2.2 g/dL (2-4); Magnesium 1.8 mg/dL (1.9-2.7); Total Bilirubin 1.1 mg/dL (0.2-1.0); Total Protein 5.5 g/dL (6.4-8.9); eGFR CKD-EPI 112.2 (>60)
[2024-07-15 08:33] LABS: Hematocrit 22.2 % (35-45); Hemoglobin 7.1 g/dL (11.5-14.3); Mean Corpuscular Hemoglobin 26.8 pg (27-33); Mean Corpuscular Hgb Conc 32.1 g/dL (31-36); Mean Corpuscular Volume 83.5 fL (80-97); Mean Platelet Volume 9.5 fL (7.5-11.2); Platelet Count 212 10^3/uL (150-450); Red Blood Count 2.65 10^6/uL (3.63-4.92); Red Cell Distribution Width 17.8 % (12-17); White Blood Count 5.6 10^3/uL (3.8-11.8)
[2024-07-15 08:54] LABS: Erythrocyte Sed Rate 20 mm/Hr (0-29)
[2024-07-15] MEDS: Magnesium Sulfate 2 gm BAG 2 GM/50 ML BAG IVPB ONE (09:23)
[2024-07-15] MEDS: Bumetanide IV 0.25 MG/ML 4 ml VIAL (1 mg) IV SLOW PU SCH (09:27)
[2024-07-15 22:22] LABS: Hematocrit 24.3 % (35-45); Hemoglobin 7.8 g/dL (11.5-14.3)
[2024-07-16 06:03] LABS: Urine Appearance No Cx Clear (Clear); Urine Bilirubin No Culture Negative (Negative); Urine Blood No Culture Negative (Negative); Urine Color No Culture Yellow; Urine Glucose No Culture Negative (Negative); Urine Ketones No Culture Negative (Negative); Urine Leukocytes No Culture Negative Leu/uL (Negative); Urine Nitrite No Culture Negative (Negative); Urine Protein No Culture Negative (Negative); Urine Specific Gravity No Cx 1.011 (1.002-1.030); Urine Urobilinogen No Cx 1+ (Negative); Urine pH No Culture 7.5 (5.0-8.0)
[2024-07-16 06:31] LABS: Hematocrit 25.3 % (35-45); Hemoglobin 8.1 g/dL (11.5-14.3); Mean Corpuscular Hgb Conc 31.9 g/dL (31-36); Mean Corpuscular Volume 84.6 fL (80-97); Mean Platelet Volume 8.9 fL (7.5-11.2); Platelet Count 227 10^3/uL (150-450); Red Blood Count 2.99 10^6/uL (3.63-4.92); Red Cell Distribution Width 17.8 % (12-17); White Blood Count 6.1 10^3/uL (3.8-11.8)
[2024-07-16 06:35] LABS: Ur Squamous Epithelial No Cx Present /HPF (Absent); Urine Bacteria No Culture 1+ /HPF (Absent); Urine Red Blood Cell No Cult Trace(0-2/hpf) /HPF (0-Trace); Urine White Blood Cell No Cult Trace(0-5/hpf) /HPF (0-Trace)
[2024-07-16 07:08] LABS: Calcium 9.2 mg/dL (8.6-10.3); Creatinine, Serum 0.58 mg/dL (0.51-0.95); Magnesium 1.8 mg/dL (1.9-2.7); Potassium 4.4 mmol/L (3.5-5.0); eGFR CKD-EPI 108.8 (>60)
[2024-07-16] MEDS: Magnesium Sulfate 2 gm BAG 2 GM/50 ML BAG IVPB ONE (10:18)
[2024-07-17 06:27] LABS: ABS Eosinophils 0.4 10^3/uL (0.0-0.5); ABS Monocytes 0.4 10^3/uL (0.0-0.9); ABS Neutrophils 4.2 10^3/uL (1.5-7.6); ABS Nucleated RBC 0.01 10^3/ul; Eosinophil % 5.9 %; Hematocrit 29.6 % (35-45); Hemoglobin 9.6 g/dL (11.5-14.3); Lymphocyte % 16.6 %; Mean Corpuscular Hemoglobin 27.7 pg (27-33); Mean Corpuscular Hgb Conc 32.4 g/dL (31-36); Mean Corpuscular Volume 85.5 fL (80-97); Mean Platelet Volume 9.4 fL (7.5-11.2); Nucleated Red Blood Cells % 0.2 %/100WBC (0.0-0.8); Platelet Count 258 10^3/uL (150-450); Red Blood Count 3.46 10^6/uL (3.63-4.92); Red Cell Distribution Width 18.2 % (12-17)
[2024-07-17 06:49] LABS: Calcium 9.2 mg/dL (8.6-10.3); Creatinine, Serum 0.59 mg/dL (0.51-0.95); Magnesium 1.9 mg/dL (1.9-2.7); Potassium 3.9 mmol/L (3.5-5.0); eGFR CKD-EPI 108.4 (>60)
[2024-07-17 20:06] LABS: Cyclic Citrullinated Pept IgG <15.6 U
[2024-07-18 06:03] LABS: ABS Eosinophils 0.3 10^3/uL (0.0-0.5); ABS Lymphocytes 0.9 10^3/uL (1.0-4.8); ABS Monocytes 0.5 10^3/uL (0.0-0.9); ABS Neutrophils 3.7 10^3/uL (1.5-7.6); Eosinophil % 5.6 %; Hematocrit 23.8 % (35-45); Hemoglobin 7.8 g/dL (11.5-14.3); Lymphocyte % 16.1 %; Mean Corpuscular Hemoglobin 27.8 pg (27-33); Mean Corpuscular Hgb Conc 32.7 g/dL (31-36); Mean Platelet Volume 9.2 fL (7.5-11.2); Nucleated Red Blood Cells % 0.1 %/100WBC (0.0-0.8); Platelet Count 230 10^3/uL (150-450); Red Cell Distribution Width 18.5 % (12-17); White Blood Count 5.4 10^3/uL (3.8-11.8)
[2024-07-18 07:22] LABS: Calcium 8.9 mg/dL (8.6-10.3); Creatinine, Serum 0.5 mg/dL (0.51-0.95); Magnesium 1.7 mg/dL (1.9-2.7); Potassium 3.8 mmol/L (3.5-5.0); eGFR CKD-EPI 112.8 (>60)
[2024-07-18] MEDS: Magnesium Sulfate 2 gm BAG 2 GM/50 ML BAG IVPB ONE (08:22)
[2024-07-18] MEDS: Potassium Chlor 20 meq TAB.ER PO ONE (08:23)
[2024-07-18] MEDS: Magnesium Hydroxide LIQ 30 ML UDC PO SCH (10:00)
[2024-07-18 10:19] LABS: C Reactive Protein 19.61 mg/L (<8.01)
[2024-07-18] MEDS: Magnesium Sulfate IV 1GM/100ML 1 GM/100 ML BAG IV ONE (10:24)
[2024-07-18 11:39] LABS: Erythrocyte Sed Rate 23 mm/Hr (0-29)
[2024-07-19 06:59] LABS: ABS Basophils 0.1 10^3/uL (0.0-0.1); ABS Eosinophils 0.3 10^3/uL (0.0-0.5); ABS Lymphocytes 0.8 10^3/uL (1.0-4.8); ABS Monocytes 0.5 10^3/uL (0.0-0.9); ABS Neutrophils 4.2 10^3/uL (1.5-7.6); Eosinophil % 4.7 %; Hematocrit 24.6 % (35-45); Hemoglobin 8.2 g/dL (11.5-14.3); Lymphocyte % 14.1 %; Mean Corpuscular Hemoglobin 28.1 pg (27-33); Mean Corpuscular Hgb Conc 33.2 g/dL (31-36); Mean Corpuscular Volume 84.4 fL (80-97); Mean Platelet Volume 8.7 fL (7.5-11.2); Nucleated Red Blood Cells % 0.1 %/100WBC (0.0-0.8); Platelet Count 248 10^3/uL (150-450); Red Blood Count 2.92 10^6/uL (3.63-4.92); White Blood Count 5.9 10^3/uL (3.8-11.8)
[2024-07-19 07:27] LABS: Creatinine, Serum 0.55 mg/dL (0.51-0.95); Magnesium 2.1 mg/dL (1.9-2.7); Potassium 4.2 mmol/L (3.5-5.0); eGFR CKD-EPI 110.2 (>60)
[2024-07-20 06:16] LABS: ABS Eosinophils 0.3 10^3/uL (0.0-0.5); ABS Lymphocytes 0.9 10^3/uL (1.0-4.8); ABS Monocytes 0.4 10^3/uL (0.0-0.9); ABS Neutrophils 4.1 10^3/uL (1.5-7.6); ABS Nucleated RBC 0.01 10^3/ul; Eosinophil % 4.4 %; Hematocrit 27.5 % (35-45); Hemoglobin 8.8 g/dL (11.5-14.3); Mean Corpuscular Hemoglobin 27.7 pg (27-33); Mean Corpuscular Hgb Conc 32.1 g/dL (31-36); Mean Corpuscular Volume 86.3 fL (80-97); Nucleated Red Blood Cells % 0.1 %/100WBC (0.0-0.8); Platelet Count 241 10^3/uL (150-450); Red Blood Count 3.19 10^6/uL (3.63-4.92); Red Cell Distribution Width 19.1 % (12-17); White Blood Count 5.7 10^3/uL (3.8-11.8)
[2024-07-20 07:11] LABS: Calcium 9.2 mg/dL (8.6-10.3); Creatinine, Serum 0.56 mg/dL (0.51-0.95); Magnesium 1.9 mg/dL (1.9-2.7); Potassium 4.5 mmol/L (3.5-5.0); eGFR CKD-EPI 109.7 (>60)
[2024-07-21 06:27] LABS: ABS Basophils 0.1 10^3/uL (0.0-0.1); ABS Eosinophils 0.3 10^3/uL (0.0-0.5); ABS Lymphocytes 0.9 10^3/uL (1.0-4.8); ABS Monocytes 0.5 10^3/uL (0.0-0.9); ABS Neutrophils 4.1 10^3/uL (1.5-7.6); Eosinophil % 4.4 %; Hematocrit 27.4 % (35-45); Hemoglobin 8.8 g/dL (11.5-14.3); Lymphocyte % 15.2 %; Mean Corpuscular Hemoglobin 27.8 pg (27-33); Mean Platelet Volume 9.1 fL (7.5-11.2); Nucleated Red Blood Cells % 0.1 %/100WBC (0.0-0.8); Platelet Count 227 10^3/uL (150-450); Red Blood Count 3.14 10^6/uL (3.63-4.92); Red Cell Distribution Width 19.7 % (12-17); White Blood Count 5.9 10^3/uL (3.8-11.8)
[2024-07-21 06:52] LABS: Calcium 8.9 mg/dL (8.6-10.3); Creatinine, Serum 0.52 mg/dL (0.51-0.95); Magnesium 1.9 mg/dL (1.9-2.7); Potassium 4.4 mmol/L (3.5-5.0); eGFR CKD-EPI 111.7 (>60)
[2024-07-22 06:17] LABS: Hematocrit 29.3 % (35-45); Hemoglobin 9.4 g/dL (11.5-14.3); Mean Corpuscular Hemoglobin 27.7 pg (27-33); Mean Corpuscular Hgb Conc 31.9 g/dL (31-36); Mean Corpuscular Volume 86.8 fL (80-97); Mean Platelet Volume 9.5 fL (7.5-11.2); Platelet Count 241 10^3/uL (150-450); Red Blood Count 3.37 10^6/uL (3.63-4.92); White Blood Count 5.1 10^3/uL (3.8-11.8)
[2024-07-22 06:53] LABS: Calcium 9.3 mg/dL (8.6-10.3); Creatinine, Serum 0.59 mg/dL (0.51-0.95); Magnesium 1.9 mg/dL (1.9-2.7); Phosphorus 3.9 mg/dL (2.5-5.0); Potassium 4.4 mmol/L (3.5-5.0); eGFR CKD-EPI 108.4 (>60)
[2024-07-23 06:49] LABS: Calcium 9.4 mg/dL (8.6-10.3); Creatinine, Serum 0.53 mg/dL (0.51-0.95); Magnesium 1.9 mg/dL (1.9-2.7); Potassium 4.4 mmol/L (3.5-5.0); eGFR CKD-EPI 111.2 (>60)
[2024-07-23 07:05] LABS: ABS Basophils 0.1 10^3/uL (0.0-0.1); ABS Eosinophils 0.2 10^3/uL (0.0-0.5); ABS Lymphocytes 0.8 10^3/uL (1.0-4.8); ABS Monocytes 0.4 10^3/uL (0.0-0.9); ABS Neutrophils 3.7 10^3/uL (1.5-7.6); ABS Nucleated RBC 0.01 10^3/ul; Eosinophil % 4.3 %; Hematocrit 28.7 % (35-45); Lymphocyte % 16.1 %; Mean Corpuscular Hemoglobin 27.9 pg (27-33); Mean Corpuscular Hgb Conc 31.4 g/dL (31-36); Mean Corpuscular Volume 88.9 fL (80-97); Mean Platelet Volume 9.2 fL (7.5-11.2); Nucleated Red Blood Cells % 0.1 %/100WBC (0.0-0.8); Platelet Count 197 10^3/uL (150-450); Red Blood Count 3.23 10^6/uL (3.63-4.92); Red Cell Distribution Width 20.1 % (12-17); White Blood Count 5.2 10^3/uL (3.8-11.8)
[2024-07-24 06:18] LABS: ABS Eosinophils 0.2 10^3/uL (0.0-0.5); ABS Lymphocytes 0.8 10^3/uL (1.0-4.8); ABS Monocytes 0.4 10^3/uL (0.0-0.9); ABS Neutrophils 3.9 10^3/uL (1.5-7.6); Eosinophil % 3.8 %; Hematocrit 28.1 % (35-45); Hemoglobin 9.2 g/dL (11.5-14.3); Lymphocyte % 14.7 %; Mean Corpuscular Hemoglobin 28.6 pg (27-33); Mean Corpuscular Hgb Conc 32.8 g/dL (31-36); Mean Corpuscular Volume 87.1 fL (80-97); Mean Platelet Volume 9.6 fL (7.5-11.2); Nucleated Red Blood Cells % 0.1 %/100WBC (0.0-0.8); Platelet Count 232 10^3/uL (150-450); Red Blood Count 3.23 10^6/uL (3.63-4.92); Red Cell Distribution Width 20.1 % (12-17); White Blood Count 5.4 10^3/uL (3.8-11.8)
[2024-07-24 06:36] LABS: Calcium 9.5 mg/dL (8.6-10.3); Creatinine, Serum 0.53 mg/dL (0.51-0.95); Magnesium 1.9 mg/dL (1.9-2.7); Potassium 4.4 mmol/L (3.5-5.0); eGFR CKD-EPI 111.2 (>60)
[2024-07-24 08:37] LABS: Rapid COVID-19 Molecular Undetected (Undetected)
[2024-07-24] MEDS: Mineral Oil ENEMA 118 ML/BOTTLE BOTTLE PR ONE (10:40)
[2024-07-24 13:43] VITALS: BP 113/56
== END 2024-07-24 16:45 | DRG 291 ==
LOC: ED 12:08 → EDHOLD 12:08 → SUATTDRO 15:54 → OBSVTOIN 15:54 → MEDTELE 16:44
PROVIDERS: ADMIT Hospitalist; ATTEND Student in an Organized Health Care Education/Training Program
PROC: O.GIEGD (2024-07-13 15:55)